=== PATIENT | female | born 1980 | race African-American/Black ===

== ENCOUNTER 2025-08-17 14:10 | Emergency (ER) | payer SELFPAY ==
[~2025-08-17] VITALS: Ht 170.2 cm; Wt 106.0 kg
[2025-08-17 14:17] VITALS: BP 153/94; TEMP 36.9; O2SAT 97
[2025-08-17 14:33] VITALS: PULSE 91; RESP 18; O2SAT 99
== END 2025-08-17 16:25 | disposition home or self-care (01) ==
LOC: ER 14:10
DX: Z00.8 Encounter for other general examination (principal); I10 Essential (primary) hypertension
CPT/HCPCS: 99282